=== PATIENT | female | born 1995 | race Caucasian/White ===

== ENCOUNTER → 2018-12-25 08:52 | Outpatient (POV) | payer BC, SELFPAY | PROVIDERS: Visit Provider Dermatology | DX: Z00.00 Encounter for general adult medical examination without abnormal findings (principal) ==

== ENCOUNTER 2020-06-08 11:23 | Emergency (ER) | payer BC, SELFPAY ==
[2020-06-08] VITALS (7 sets, daily range): BP systolic 105–145; BP diastolic 65–86; PULSE 69–130; RESP 17–20; TEMP 36.7–36.8; O2SAT 95–100; BMI 19.2
--- NOTE | 2020-06-08 11:35 | US_ITS ---
PROCEDURE: US OB TRANSVAGINAL CLINICAL INDICATION: bleeding COMPARISON: No exams were available for comparison FINDINGS: There is a small cystic area in the lower aspect of the endometrium near the cervix which measures 5 x 3 mm. The endometrium measures 7 mm in thickness. The uterus has an otherwise unremarkable appearance. There is a small left ovarian cyst at 13 mm. There is bilateral ovarian blood flow. No cul-de-sac fluid. IMPRESSION: Cannot confirm a viable intrauterine at this time. There is a small cystic area in the lower uterine segment/cervical region nonspecific. Estimated due date by Ultrasound is Dictated by: Sam Galicia MD 06/08/2020 13:21 Sam Galicia MD in [place] 06/08/2020 13:21
[2020-06-08 11:57] LABS: Microscopic, Urine URINE MICROSCOPIC (MICROSCOPIC)
[2020-06-08 12:00] LABS: Appearance,Urine CLEAR (Clear); Bilirubin,Urine Negative (Negative); Blood, Urine 3+ (Negative); Color,Urine YELLOW (Yellow); Glucose,Urine (UA) Negative (Negative); Ketones,Urine Negative (Negative); Leukocyte Esterase,Urine Negative (Negative); Nitrate,Urine Negative (Negative); Protein,Urine Negative (Negative); Specific Gravity, Urine <= 1.005 (1.005-1.030); Urobilinogen,Urine 0.2 EU/dl (0.2)
[2020-06-08 12:03] LABS: Basophils # 0.1 K/mm3 (0-0.2); Basophils % 0.9 % (0.1-2.0); Eosinophils # 0.1 K/mm3 (0.0-0.4); Eosinophils % 0.9 % (0.1-12.0); Hematocrit 45.3 % (37.0-47.0); Hemoglobin 15.3 g/dL (12.2-16.2); Lymphocytes # 2.6 K/mm3 (0.7-4.5); Lymphocytes % 25.1 % (10-50); Mean Corpuscular HGB Conc 33.9 g/dL (31.8-35.4); Mean Corpuscular Hemoglobin 30.7 pg (27.0-31.2); Mean Corpuscular Volume 90.8 fl (81-99); Mean Platelet Volume 7.2 fl (7.4-10.4); Monocytes # 0.5 K/mm3 (0.1-1.0); Monocytes % 4.6 % (1.7-9.3); Neutrophils # 7.1 K/mm3 (1.8-7.8); Neutrophils % 68.5 % (37.0-80.0); Platelet Count 251 K/mm3 (142-424); Red Blood Count 4.99 M/mm3 (4.20-5.40); Red Cell Distribution Width 12.2 % (11.5-17.5); White Blood Count 10.3 K/mm3 (4.8-10.8)
[2020-06-08 12:04] LABS: Chloride 104 mmol/L (98-107); Potassium 3.7 mmoL/L (3.5-5.1); Sodium 139 mmol/L (136-145); Urine Pregnancy, HCG Qual. Negative (Negative)
[2020-06-08 12:06] LABS: Alanine Aminotransferase 24 U/L (12-78); Alkaline Phosphatase 55 U/L (38-126); Aspartate Amino Transferase 29 U/L (14-36); Bilirubin,Total 0.9 mg/dl (0.2-1.3); Blood Urea Nitrogen 8 mg/dl (7-17); Creatinine Clearance Estimated 100 mL/min (50-200); Estimated Glomerular Filt Rate 87 ml/min (>60); GFR (African American) 106 ML/MIN (>60)
[2020-06-08 12:07] LABS: Albumin Level 4.5 g/dl (3.5-5.0); Albumin/Globulin Ratio 1.4 (1.1-1.8); Anion Gap 12.7 mEq/L (5-15); Calcium 9.6 mg/dl (8.4-10.2); Carbon Dioxide 26 mmol/L (22.0-30.0); Globulin 3.2 g/dL (1.3-3.2); Glucose 111 mg/dl (74-100); Total Protein,Serum 7.7 g/dl (6.3-8.2)
--- NOTE | 2020-06-08 12:22 | PC.NURSE ---
vital signs delayed due to pt at ultra sound
[2020-06-08 12:24] LABS: HCG,Quantitative 10 mIU/ml (0-5.42)
[2020-06-08 12:29] LABS: Bacteria,Urine Trace /lpf
--- NOTE | 2020-06-08 12:58 | HMH.EDUROGF ---
ED Disposition Clinical Impression: Complete Disposition: Home, Self-Care Condition on Discharge: Good Instructions: DI for Miscarriage Referrals: Juan Pablo Barrios MD [Primary Care Provider] - Gal Martino MD [Staff Physician] - - Critical Care Critical Care Time: No Attestation: On 06/08/20, the high probability of a clinically significant, sudden or life threatening deterioration of the following system(s) required my full and direct attention, intervention and personal management. The time I documented below is in addition to time spent performing reported procedures but includes the following listed in this critical care notation. Medical Decision Making - Medical Records Medical records reviewed: Yes: I reviewed the patient's medical records. - Garry Inquiry Pt receiving controlled substance: No Vital Signs: 06/08/20 11:24 Temperature 98.1 F Temperature Source Oral Pulse Rate [Left Radial] 113 H Respiratory Rate 17 Blood Pressure [Right Arm] 141/83 H Blood Pressure Mean [Right Arm] 102 Blood Pressure Source [Right Arm] Automatic Cuff Blood Pressure Position [Right Arm] Sitting 02 Sat by Pulse Oximetry 100 Oxygen Delivery Method Room Air - Lab Data Lab Results 06/08/20 11:35: Urine Color Yellow, Urine Appearance Clear, Urine pH 7.0, Ur Specific [place] <= 1.005, Urine Protein Negative, Urine Glucose (UA) Negative, Urine Ketones Negative, Urine Blood 3+, Urine Nitrate Negative, Urine Bilirubin Negative, Urine Urobilinogen 0.2, Ur Leukocyte Esterase Negative, Urine RBC 10-20, Urine WBC 5-10, Ur Squamous Epith Cells 3-5, Urine Bacteria Trace 06/08/20 11:35: WBC 10.3, RBC 4.99, Hgb 15.3, Hct 45.3, MCV 90.8, MCH 30.7, MCHC 33.9, RDW 12.2, Plt Count 251, MPV 7.2 L, Neut % (Auto) 68.5, Lymph % (Auto) 25.1, [place] % (Auto) 4.6, Eos % (Auto) 0.9, Baso % (Auto) 0.9, Neut # (Auto) 7.1, Lymph # (Auto) 2.6, [place] # (Auto) 0.5, Eos # (Auto) 0.1, Baso # (Auto) 0.1 06/08/20 11:35: Urine HCG, Qual Negative 06/08/20 11:35: Sodium 139, Potassium 3.7, Chloride 104, Carbon Dioxide 26, Anion Gap 12.7, BUN 8, Creatinine 0.80, Estimated Creat Clear 100, Estimated GFR 87, Est GFR ( Amer) 106, Glucose 111 H, Calcium 9.6, Total Bilirubin 0.9, AST 29, ALT 24, Alkaline Phosphatase 55, Total Protein 7.7, Albumin 4.5, Globulin 3.2, Albumin/Globulin Ratio 1.4 06/08/20 11:35: HCG, Quant 10 H 06/08/20 12:05: Blood Type A Positive, Antibody Screen Negative Result diagrams: 06/08/20 11:35 06/08/20 11:35 - Radiology Data #1 Image(s): Other (TVUS) IMPRESSION: Cannot confirm a viable intrauterine at this time. There is a small cystic area in the lower uterine segment/cervical region nonspecific. Estimated due date by Ultrasound is - Reevaluation(s) Time: 13:52 Reevaluation #1: On reevaluation, patient is feeling fine. She is not having any worsening bleeding or abdominal discomfort. Patient's serum hCG is extremely low. Ultrasound is an equivocal for any intrauterine . She does have some small cysts in the lower cervix, however in correlation with her hCG level, I do believe miscarriage is most likely. I did instruct the patient that she needs to be reevaluated in 48 hours by her C[employer] REPAIRER for repeat blood draw and possible ultrasound. There is always concern for ectopic , however the patient is pain-free and has a normal abdominal exam at this time. Patient was also given strict return precautions. Verbalized understanding. Medical Decision Narrative: This is a 24-year-old female presenting to the emergency department with vaginal bleeding. Patient is currently 7 weeks . Painless bleeding. Work-up will be initiated. Female Urogenital HPI - General Chief complaint: Vaginal Bleeding Stated complaint: vag bleeding Time Seen by Provider: 06/08/20 11:30 Mode of Arrival: Ambulatory Limitations: No Limitations Description of Symptoms (Recalled from ER Triage
== END 2020-06-08 14:05 | disposition home or self-care (01) ==
PROVIDERS: Emergency Provider Emergency Medicine; PCP Family Medicine
DX: O03.9 Complete or unspecified spontaneous abortion without complication (principal)
CPT/HCPCS: 36415; 76817; 80053; 81001; 81025; 84702; 85025; 86850; 99284

== ENCOUNTER → 2020-06-12 07:23 | Outpatient (CLI) | payer BC, SELFPAY ==
[2020-06-12 10:32] LABS: HCG,Quantitative < 2 mIU/ml (0-5.42)
== END ==
PROVIDERS: Visit Provider Nurse Practitioner Obstetrics & Gynecology
DX: O20.0 Threatened abortion (principal)
CPT/HCPCS: 36415; 84702

== ENCOUNTER → 2020-08-10 07:13 | Outpatient (CLI) | payer BC, SELFPAY ==
[2020-08-10 20:52] LABS: HCG,Quantitative 236 mIU/ml (0-5.42)
== END ==
PROVIDERS: Visit Provider Nurse Practitioner Obstetrics & Gynecology
DX: Z32.00 Encounter for pregnancy test, result unknown (principal)
CPT/HCPCS: 36415; 84702

== ENCOUNTER → 2020-08-18 10:26 | Outpatient (CLI) | payer BC, SELFPAY ==
[2020-08-18 11:17] LABS: Basophils % 0.6 % (0.1-2.0); Eosinophils % 0.4 % (0.1-12.0); Hematocrit 41.9 % (37.0-47.0); Hemoglobin 13.8 g/dL (12.2-16.2); Lymphocytes # 1.6 K/mm3 (0.7-4.5); Lymphocytes % 26.7 % (10-50); Mean Corpuscular Volume 90.8 fl (81-99); Monocytes # 0.3 K/mm3 (0.1-1.0); Monocytes % 5.5 % (1.7-9.3); Neutrophils # 4.1 K/mm3 (1.8-7.8); Neutrophils % 66.9 % (37.0-80.0); Platelet Count 182 K/mm3 (142-424); Red Blood Count 4.61 M/mm3 (4.20-5.40); Red Cell Distribution Width 12.1 % (11.5-17.5); White Blood Count 6.1 K/mm3 (4.8-10.8)
[2020-08-19 09:47] LABS: HIV Screen 4th Generation wRfx Non Reactive (Non Reactive)
[2020-08-19 10:51] LABS: Rapid Plasma Reagin Ab Titer Non Reactive (NonRea<1:1); Rubella Antibodies, IgG 1.46 index (Immune >0.99)
[2020-08-19 13:59] LABS: Hepatitis B Surface Antigen Negative (Negative); Hepatitis C Antibody <0.1 s/co ratio (0.0-0.9)
== END ==
PROVIDERS: Visit Provider Nurse Practitioner Obstetrics & Gynecology
DX: Z34.90 Encounter for supervision of normal pregnancy, unspecified, unspecified trimester (principal)
CPT/HCPCS: 36415; 85025; 86592; 86703; 86762; 86850; 87340; 87380; G0432

== ENCOUNTER → 2020-08-28 15:02 | Outpatient (CLI) | payer BC, SELFPAY ==
--- NOTE | 2020-08-28 15:03 | US_ITS ---
PROCEDURE: US OB <= 14 WEEKS FETUS CLINICAL INDICATION: for dates Early Ob ultrasound for dates COMPARISON: US US OB TRANSVAGINAL from 06/08/2020 FINDINGS: An intrauterine gestational sac is present with a pole with a crown-rump length of 0.36 cm correlating to gestational age of 6 weeks 1 day. heart tones are present with an FHR of 112 BPM. Yolk sac is noted. IMPRESSION: Live IUP at 6 weeks 1 day. Estimated due date by Ultrasound is 04/22/2021 Dictated by: Sam Galicia MD 08/28/2020 15:51 Sam Galicia MD in [place] 08/28/2020 15:51
== END ==
PROVIDERS: PCP Family Medicine; Visit Provider Nurse Practitioner Obstetrics & Gynecology
DX: Z34.90 Encounter for supervision of normal pregnancy, unspecified, unspecified trimester (principal)
CPT/HCPCS: 76801

== ENCOUNTER 2020-09-07 10:45 | Emergency (ER) | payer BC, SELFPAY ==
[2020-09-07 12:10] VITALS: BP 120/80; PULSE 91; RESP 18; TEMP 36.9; O2SAT 98; BMI 18.8
[2020-09-07 12:14] VITALS: BP 120/80; PULSE 91; RESP 18; TEMP 36.9; O2SAT 98
--- NOTE | 2020-09-07 12:14 | HMH.EDUTC ---
[facility] [place] Disposition Clinical Impression: Encounter for laboratory testing for COVID-19 virus Disposition: Home, Self-Care Condition on Discharge: Good Instructions: Preventing the Spread of Coronavirus Discharge Instructions, Sore Throat Additional Instructions: *Monitor Temp, Over the counter Motrin or Tylenol as directed/as needed Tylenol every 4 hours and Motrin every 6 hours (as long as your family doctor has told you that you can take it) for fever or pain. and straight to ER if unable to lower temp less than 101.0 after medication given *Warm salt water gargles may help to soothe the throat *Throat Lozenges *Warm fluids like tea with honey may help to soothe the throat *Sleep elevated *Humidifier/Vaporizer *Flonase 2 sprays in each nostril daily but be aware that it may take 2-3 days before you notice improvement Follow up IMMEDIATELY for new or worsening symptoms or no Noticeable improvement over the next 48-72 hours. 911 for difficulty breathing or swallowing You were tested for today for COVID19 your test result should be back in the next 24-48 hours, you may call to the [facility] to see if your test results are back in the next 48 hours [phone] [facility] hours are 9am-9pm You was given a handout with instructions for Self Quarantine and Self isolation for while you wait on test results and what to do if they are positive If you are positive the Health Dept will be contacting you also Referrals: Juan Pablo Barrios MD [Primary Care Provider] - As needed Forms: Work/School Release Time of Disposition: 12:17 Medical Decision Making - Garry Inquiry Pt receiving controlled substance: No Garry was queried for this patient: No Vital Signs: 09/07/20 12:10 Temperature 98.4 F Temperature Source Oral Pulse Rate [Left] 91 H Respiratory Rate 18 Blood Pressure [Right Arm] 120/80 Blood Pressure Mean [Right Arm] 93 Blood Pressure Source [Right Arm] Automatic Cuff Blood Pressure Position [Right Arm] Sitting 02 Sat by Pulse Oximetry 98 Oxygen Delivery Method Room Air Orders (Tests/Meds): ORDERS Category Date Time Status Covid-19 Nasal PCR Sendout [facility] 09/07/20 11:45 Ordered [facility] [place] HPI - General Stated complaint: sore throat,cough,headache,covid test Time Seen by Provider: 09/07/20 12:14 Mode of Arrival: Ambulatory Source of Information: Patient Limitations: No Limitations Description of Symptoms (Recalled from Triage Doc. by RN): Covid testing symptomatic-cough, body aches, diarrhea x 3days HEENT Symptoms (Recalled from RN notes): Yes Resp Symptoms (Recalled from RN notes): Yes Skin Symptoms (Recalled from RN notes): No MS Symptoms (Recalled from RN notes): No Functional Status (Recalled from RN notes): wnl - History of Present Illness Provider Complaint: Patient state that she is 7wks OB States that she started on the weekend having scratchy throat and body aches State that today she got up and had diarrhea and muscle aches all over State that she was worried and wanted to get tested for COVID - Related Data Home Medications Medication Instructions Recorded Confirmed prenat.vits,tati,[id number] 1 tab PO DAILY 06/15/20 08/18/20 folic acid 800 mcg tablet 0.8 mg PO DAILY 08/18/20 08/18/20 Allergies Allergy/AdvReac Type Severity Reaction Status Date / Time No Known Allergies Allergy Verified 08/18/20 08:56 - Worker's Comp Is this a Worker's Comp case?: No Is this an [facility] Worker's Comp?: No Is this a [facility] Worker's Comp?: No H History - Hepatitis A Screen Drug use history?: No High risk sexual behaviors?: No History of sexually transmitted infection?: No Currently employed?: No Childcare worker?: No Do you have indoor plumbing?: Yes Do you have electricity?: Yes Attestation statement:: This patient has been screened for Hepatitis A risk factors. I have reviewed the patient's past medical history: Yes Other Surgeries: Yes: Appendectomy - Social History Smoking
[2020-09-07 19:26] LABS: UTC Strep Screen (Rapid) Negative (Negative)
[2020-09-08 12:41] LABS: Covid-19 Nasal PCR Sendout Lex Positive
--- NOTE | 2020-09-08 12:53 | PC.NURSE ---
Patient notified of positive COVID results. Educated on quarantine.
== END 2020-09-07 12:26 | disposition home or self-care (01) ==
PROVIDERS: Emergency Provider Nurse Practitioner; PCP Family Medicine
DX: U07.1 COVID-19 (principal); Z34.90 Encounter for supervision of normal pregnancy, unspecified, unspecified trimester
CPT/HCPCS: 87880; 99201; U0004

== ENCOUNTER → 2020-12-10 13:18 | Outpatient (CLI) | payer BC, SELFPAY ==
--- NOTE | 2020-12-10 13:18 | US_ITS ---
PROCEDURE: US OB /MATERNAL DETAIL CLINICAL INDICATION: 20 weeks gestation Anatomy exam COMPARISON: US US OB <= 14 WEEKS FETUS from 08/28/2020 FINDINGS: There is a single live fetus which is in breech presentation. The cervix is closed and measures 4 cm. heart and body motion is noted. The placenta is posterior and grade 1. Complete survey performed and was unremarkable on the submitted images as in PACS. No discrete anomalies identified on survey imaging by technologist. Active fetus. Three-vessel cord with satisfactory umbilical cord insertion. 4- chamber heart noted. Survey of brain & ventricles Unremarkable. Face and neck survey unremarkable. Diaphragm and chest views unremarkable. Abdomen: Both kidneys noted and unremarkable. Stomach noted and satisfactory. Spine: Survey of the spine satisfactory with no anomalies identified nor imaged. Both arms and legs noted. Amniotic Fluid: Adequate. Maternal adnexa: No significant findings. Measurements: Average ultrasound age 20weeks 6days. Gestational Age 20weeks 6days Estimated due date by ultrasound age 0704/23/2021. Estimated weight 379g BPD = 20weeks 6days OFD = 20weeks 5days HC = 20weeks 1day AC = 21weeks 1day FL = 20weeks 6days Growth Percentile= 32Percent% Heart Rate = 128bpm Cerebellum = 20weeks 5days Humerus = 22weeks HC/AC is 1.1 CI is 0.79 FL/BPD is 0.7 FL/AC is 0.21 IMPRESSION: Live IUP in breech presentation with an average ultrasound age of 20 weeks 6 days. No obvious anomalies. Please see above for detail Dictated by: Sam Galicia MD 01/23/2021 18:52 Sam Galicia MD in [place] 01/23/2021 18:52
== END ==
PROVIDERS: PCP Family Medicine; Visit Provider Nurse Practitioner Obstetrics & Gynecology
DX: Z34.90 Encounter for supervision of normal pregnancy, unspecified, unspecified trimester (principal); Z3A.20 20 weeks gestation of pregnancy
CPT/HCPCS: 76811

== ENCOUNTER → 2021-01-19 07:56 | Outpatient (CLI) | payer BC, SELFPAY ==
[2021-01-19 08:34] LABS: Glucose,Fasting 90 mg/dl (74-100)
[2021-01-19 09:59] LABS: Glucose 1 Hour 71 mg/dL (74-100)
== END ==
PROVIDERS: Visit Provider Nurse Practitioner Obstetrics & Gynecology
DX: Z34.90 Encounter for supervision of normal pregnancy, unspecified, unspecified trimester (principal)
CPT/HCPCS: 36415; 82951

== ENCOUNTER → 2021-02-22 13:23 | Outpatient (CLI) | payer BC, SELFPAY ==
--- NOTE | 2021-02-22 13:23 | US_ITS ---
PROCEDURE: US OB BIOPHYSICAL PROFILE CLINICAL INDICATION: sga Small for gestational age TECHNIQUE: FINDINGS: The following parameters are obtained: Average ultrasound age is Average 30weeks 6days Estimated due date by ultrasound is 04/27/2021. Estimated weight is 1,643g. This is 17th percentile. BPD: 30weeks 3days, 7.6cm OFD: 31weeks 2days, 10.1cm HC: 28cm AC: 26.6cm FL: 6cm heart rate: 128bpm bpm. HC/AC: 1.05 Cephalic index: 0.75 FL/BPD: 0.79 FL/AC: 0.23 Amniotic fluid index: 10.49cm Qualitative AFV: 2 breathing movements: 2 Gross body movements: 2 Tone: 2 Biophysical profile score: 8 The cervix is closed measuring 3.5 cm. Fetus is in cephalic presentation. The placenta is posterior and grade 1. No previa or abruption IMPRESSION: Live IUP at 30 weeks 6 days in cephalic presentation. Estimated weight is 1643 g which is 17th percentile. PANCHO normal at 10 cm. Biophysical profile 8 of 8 Dictated by: Sam Galicia MD 02/23/2021 08:07 Sam Galicia MD in [place] 02/23/2021 08:07
== END ==
PROVIDERS: PCP Family Medicine; Visit Provider Nurse Practitioner Obstetrics & Gynecology
DX: O36.5990 Maternal care for other known or suspected poor fetal growth, unspecified trimester, not applicable or unspecified (principal)
CPT/HCPCS: 76816; 76819

== ENCOUNTER → 2021-03-18 11:48 | Outpatient (CLI) | payer BC, SELFPAY | PROVIDERS: Visit Provider Nurse Practitioner Obstetrics & Gynecology | DX: Z34.90 Encounter for supervision of normal pregnancy, unspecified, unspecified trimester (principal) | CPT/HCPCS: 86403 ==

== ENCOUNTER → 2021-03-24 14:48 | Outpatient (CLI) | payer BC, SELFPAY ==
--- NOTE | 2021-03-24 14:48 | US_ITS ---
PROCEDURE: US OB BIOPHYSICAL PROFILE CLINICAL INDICATION: sga Small for gestational age TECHNIQUE: FINDINGS: The following parameters are obtained: Average ultrasound age is Average 34weeks 3days Estimated due date by ultrasound is 05/02/2021. Estimated weight is 2,314g. This is 9th percentile indicating intrauterine growth restriction. BPD: 35weeks 2days; 8.7cm OFD: 35weeks; 10.9cm HC: 34 weeks 5 days; 31cm AC: 34 weeks 1 day; 30.1cm FL: 33 weeks 1 day; 6.4cm heart rate: 125bpm bpm. HC/AC: 1.03 Cephalic index: 0.8 FL/BPD: 0.73 FL/AC: 0.21 Amniotic fluid index: 11.34cm Qualitative AFV: 2 breathing movements: 2 Gross body movements: 2 Tone: 2 Biophysical profile score: 8 The placenta is fundal and grade 3. Limited images of the fetus were obtained. The fetus urinary bladder did appears somewhat prominent but could be transient and could be confirmed with follow-up if clinically warranted. IMPRESSION: Live IUP with an average ultrasound age 34 weeks 3 days which is in cephalic presentation. Estimated weight is 2314 g which is 9th percentile indicating intrauterine growth restriction. Fundal grade 3 placenta PANCHO 11 cm BPD 8 of 8 Dictated by: Sam Galicia MD 03/26/2021 05:11 Sam Galicia MD in [place] 03/26/2021 05:11
== END ==
PROVIDERS: PCP Family Medicine; Visit Provider Nurse Practitioner Obstetrics & Gynecology
DX: O36.5990 Maternal care for other known or suspected poor fetal growth, unspecified trimester, not applicable or unspecified (principal)
CPT/HCPCS: 76816; 76819

== ENCOUNTER 2021-04-10 17:50 | Inpatient (IN) | payer BC, SELFPAY ==
[2021-04-10 16:43] VITALS: BP 135/87; PULSE 96; RESP 18; TEMP 37; O2SAT 99; BMI 21.3
[2021-04-10 17:33] LABS: Microscopic, Urine URINE MICROSCOPIC (MICROSCOPIC)
[2021-04-10 17:34] LABS: Appearance,Urine CLEAR (Clear); Bilirubin,Urine Negative (Negative); Blood, Urine TRACE-I (Negative); Color,Urine YELLOW (Yellow); Glucose,Urine (UA) Negative (Negative); Ketones,Urine Negative (Negative); Leukocyte Esterase,Urine Negative (Negative); Nitrate,Urine Negative (Negative); Protein,Urine Negative (Negative)
[2021-04-10 17:35] LABS: Fetal Membrane Rupture (Rapid) Positive (Negative)
[2021-04-10 17:38] LABS: RBC,Urine Occasional #/hpf (0-3); Squamous Epithelial Cell,Urine Occasional #/hpf (0-5)
[2021-04-10 17:46] LABS: Benzodiazepines Screen,Urine Negative ng/ml (<200)
[2021-04-10 17:47] LABS: Amphetamine/Metha Screen,Urine Negative ng/ml (<1000)
[2021-04-10 17:48] LABS: Barbiturates Screen,Urine Negative ng/ml (<200); Cannabinoid Screen,Urine Negative ng/ml (<50)
[2021-04-10 17:49] LABS: Cocaine Screen,Urine Negative ng/ml (<300)
[2021-04-10 17:50] LABS: Methadone Screen,Urine Negative ng/ml (<300); Opiate Screen,Urine Negative ng/ml (<300)
[2021-04-10 17:51] LABS: Phencyclidine Screen,Urine Negative ng/ml (<25)
[2021-04-10 18:13] LABS: Coronavirus 19, PCR Not Detected (NotDetected); Influenza A, PCR Not Detected (NotDetected); Influenza B, PCR Not Detected (NotDetected)
[2021-04-10 18:15] LABS: Basophils # 0.1 K/mm3 (0-0.2); Basophils % 0.5 % (0.1-2.0); Eosinophils % 0.4 % (0.1-12.0); Hematocrit 40.5 % (37.0-47.0); Hemoglobin 13.9 g/dL (12.2-16.2); Lymphocytes # 1.9 K/mm3 (0.7-4.5); Mean Corpuscular HGB Conc 34.2 g/dL (31.8-35.4); Mean Corpuscular Hemoglobin 30.6 pg (27.0-31.2); Mean Corpuscular Volume 89.3 fl (81-99); Mean Platelet Volume 8.8 fl (7.4-10.4); Monocytes # 0.5 K/mm3 (0.1-1.0); Monocytes % 5.1 % (1.7-9.3); Neutrophils # 7.5 K/mm3 (1.8-7.8); Platelet Count 223 K/mm3 (142-424); Red Blood Count 4.53 M/mm3 (4.20-5.40); Red Cell Distribution Width 13.5 % (11.5-17.5)
--- NOTE | 2021-04-10 20:38 | HMH.ANESCL ---
[facility] Anesthesia Checklist - Patient Identification Patient Identification: Arm Band - Structural Data Admitted From: Inpatient Planned Operative Procedure/s: Epidural Consent for Planned Operative Procedure(s) Verified: Yes - NPO Status Verified Time NPO: 13:00 - Airway Assessment C-Spine Mobility Assessed: Yes TMJ Mobility Assessed: Yes Dentition: Good Dentition - Neurological Assessment Level of Consciousness: Awake Hx Seizures: No Numbness or tingling in extremities: No - Anesthesia Plan Anesthesia Risk discussed: Yes Anesthesia Plan: Verified ASA Class: II Anesthesia Type: Epidural [facility] History I have reviewed the patient's past medical history: Yes *Have you ever received a pneumonia vaccine?: No *Have you received a flu vaccine this season?: No Anesthesia experience/problems:: None Other Surgeries: Yes: Appendectomy. 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
--- NOTE | 2021-04-10 21:28 | HMH.HP ---
*Admission Date: 04/10/21 *Chief complaint: Continuous rupture of membranes and contractions *History of present illness: This 25-year-old 2, para 0, AB 1 white female has had regular care and no problems during this . Actually 1600 hrs. today she felt spontaneous rupture of membranes at home and came to the labor room, where that was confirmed. At the time she was 4 cm dilated and having regular contractions. In the interim she is progressed to 7 cm and now has an epidural in situ. [facility] History Medical History: Denies:: Seizures *Have you ever received a pneumonia vaccine?: No *Have you received a flu vaccine this season?: No Anesthesia experience/problems:: None Other Surgeries: Yes: Appendectomy. 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 Para: 0 LMP comments: (38 4/7 weeks) Review of Systems - Review of Systems Review of systems:: pertinent systems reviewed and negative unless documented below (all WNL) Meds Home Medications Medication Instructions Recorded Confirmed Type prenat.vits,tati,[id number] 1 tab PO DAILY 06/15/20 04/08/21 History Allergies Allergy/AdvReac Type Severity Reaction Status Date / Time No Known Allergies Allergy Verified 04/08/21 08:19 Exam Vital signs and Labs for Last 24 Hours: Temp Pulse Resp BP Pulse Ox 98.6 F 96 H 18 135/87 99 04/10/21 16:43 04/10/21 16:43 04/10/21 16:43 04/10/21 16:43 04/10/21 16:43 Laboratory Results - last 24 hr 04/10/21 16:45: Urine Color Yellow, Urine Appearance Clear, Urine pH 8.0, Ur Specific [place] 1.010, Urine Protein Negative, Urine Glucose (UA) Negative, Urine Ketones Negative, Urine Blood Trace-i, Urine Nitrate Negative, Urine Bilirubin Negative, Urine Urobilinogen 1.0, Ur Leukocyte Esterase Negative, Urine RBC Occasional, Urine WBC None, Ur Squamous Epith Cells Occasional, Urine Bacteria None 04/10/21 16:45: Urine Opiates Screen Negative, Urine Methadone Screen Negative, Ur Barbituates Screen Negative, Ur Phencyclidine Scrn Negative, Ur Amphetamines Screen Negative, U Benzodiazepines Scrn Negative, Urine Cocaine Screen Negative, U Marijuana (THC) Screen Negative 04/10/21 17:00: Membrane Rupture Positive A 04/10/21 18:02: WBC 10.0, RBC 4.53, Hgb 13.9, Hct 40.5, MCV 89.3, MCH 30.6, MCHC 34.2, RDW 13.5, Plt Count 223, MPV 8.8, Neut % (Auto) 75.0, Lymph % (Auto) 19.0, [place] % (Auto) 5.1, Eos % (Auto) 0.4, Baso % (Auto) 0.5, Neut # (Auto) 7.5, Lymph # (Auto) 1.9, [place] # (Auto) 0.5, Eos # (Auto) 0.0, Baso # (Auto) 0.1 04/10/21 18:02: SARS-CoV-2 (PCR) Not detected, Influenza A Untype (PCR) Not detected, Influenza Type B (PCR) Not detected 04/10/21 18:02: Blood Type A Positive, Antibody Screen Negative I & O for Last 24 hours: Intake & Output 04/08/21 04/09/21 04/10/21 04/11/21 11:59 11:59 11:59 11:59 Weight 144 lb 6 oz - *Routine HEENT Exam Head: Present: normocephalic (normal) Eye: Present: EOMI (NL) ENT: Present: mucous membranes moist (NL) - *Routine Respiratory Exam Present: accessory muscle use (NL) - *Routine Cardiovascular Exam Present: RRR (NL) - *Routine Abdominal Exam Present: soft (NL) - *Routine Rectal Exam Rectal:: deferred (NL) - *Routine Genitalia Exam Genitalia:: normal female (Cervix completely effaced, 7 cm, with the presenting vertex at 0 station.), deferred Comment:: Cervix 7 cm, 100% effaced, presenting vertex at 0 station. Internal electrode applied. Assessment and Plan (1) Start date: 04/10/21 Start time: 16:00 Status: Acute Qualifiers: Weeks of gestation: 38 weeks Qualified Code(s): Z3A.38 - 38 weeks gestation of
--- NOTE | 2021-04-10 21:43 | P.PN_ITS ---
Internal Medicine - PN: Subj *Date: 04/10/21 *Time: 21:43 ( 7 cm dilated, 100% effaced, with the presenting vertex at 0 st ation. Internal electrode in situ. Epidural in situ and working well) Exam Vital signs and Labs for Last 24 Hours: Temp Pulse Resp BP Pulse Ox 98.6 F 96 H 18 135/87 99 04/10/21 16:43 04/10/21 16:43 04/10/21 16:43 04/10/21 16:43 04/10/21 16:43 Laboratory Results - last 24 hr 04/10/21 16:45: Urine Color Yellow, Urine Appearance Clear, Urine pH 8.0, Ur Specific [place] 1.010, Urine Protein Negative, Urine Glucose (UA) Negative, Urine Ketones Negative, Urine Blood Trace-i, Urine Nitrate Negative, Urine Bilirubin Negative, Urine Urobilinogen 1.0, Ur Leukocyte Esterase Negative, Urine RBC Occasional, Urine WBC None, Ur Squamous Epith Cells Occasional, Urine Bacteria None 04/10/21 16:45: Urine Opiates Screen Negative, Urine Methadone Screen Negative, Ur Barbituates Screen Negative, Ur Phencyclidine Scrn Negative, Ur Amphetamines Screen Negative, U Benzodiazepines Scrn Negative, Urine Cocaine Screen Negative, U Marijuana (THC) Screen Negative 04/10/21 17:00: Membrane Rupture Positive A 04/10/21 18:02: WBC 10.0, RBC 4.53, Hgb 13.9, Hct 40.5, MCV 89.3, MCH 30.6, MCHC 34.2, RDW 13.5, Plt Count 223, MPV 8.8, Neut % (Auto) 75.0, Lymph % (Auto) 19.0, [place] % (Auto) 5.1, Eos % (Auto) 0.4, Baso % (Auto) 0.5, Neut # (Auto) 7.5, Lymph # (Auto) 1.9, [place] # (Auto) 0.5, Eos # (Auto) 0.0, Baso # (Auto) 0.1 04/10/21 18:02: SARS-CoV-2 (PCR) Not detected, Influenza A Untype (PCR) Not detected, Influenza Type B (PCR) Not detected 04/10/21 18:02: Blood Type A Positive, Antibody Screen Negative I & O for Last 24 hours: Intake & Output 04/08/21 04/09/21 04/10/21 04/11/21 11:59 11:59 11:59 11:59 Weight 144 lb 6 oz Assessment and Plan (1) Start date: 04/10/21 Start time: 16:00 Status: Acute Qualifiers: Weeks of gestation: 38 weeks Qualified Code(s): Z3A.38 - 38 weeks gestation of Category: Medical Code(s): Z34.90 - Encounter for supervision of normal , unspecified, unspecified trimester
[2021-04-11 00:07] LABS: Cord Blood PH 7.32 (7.35-7.45)
--- NOTE | 2021-04-11 00:13 | HMH.DN ---
- Delivery Note Delivery Date:: 04/10/21 Delivery Time:: 23:55 Was labor medically induced?: No Induction method: none Gestational age (weeks): 38 Infant delivered prior to 39 weeks?: Yes Justification for early elective delivery:: Active Labor, Premature ROM Infant Gender: Female at 1 minute: 9 at 5 minutes: 9 AF:: clear LAC or MLE?: MLE (occiput posterior) Delivery Procedure:: This 25-year-old 2, now para 1, Ab1 white female was admitted at 38-4/7 weeks with spontaneous rupture of membranes at home (at 1600 h0ous) and regular contractions. She was 4 cm dilated upon admission. She progressed slowly to 7 cm, at which time she received a labor epidural, which worked well. At 8 cm her contractions waned, and she was augmented with intravenous Pitocin. She went steadily to completion, and pushed effectively; however, the presentation occiput posterior, and ultimately she was unable to negotiate the pubic bone. She was delivered by outlet forceps from direct OP, over a midline episiotomy. There was no nuchal cord, nor any meconium. The baby's nasal and oropharynx were bulb suctioned, and the baby cried spontaneously on the perineum, as was delivered. The cord was clamped and cut, 3 vessels were noted to be within the cord, and cord blood was obtained. The baby was handed into the arms of the attending RN, who assigned Apgars of 9 at 1 minute and 9 at 5 minutes to this 6 pound 13 ounce female , born at 2355. The placenta delivered spontaneously at 2358, making the total time in labor 7 hours 58 minutes. The uterus was inspected and was felt to be clean, and was involuting well, with IV Pitocin running. There were no ulcerations, nor extensions of the midline episiotomy, which was closed in the usual fashion, in layers, with 2-0 Vicryl. The rectovaginal septum was intact at the close of the procedure. The sponge and needle count was correct. The estimated blood loss was 350 cc. The patient tolerated the procedure well, and was recovered in excellent condition. Blood type is Rh+. Her rubella titer is immune. She plans to bottlefeed. Placental Delivery Description: Spontaneous (NL)
[2021-04-11 03:37] VITALS: BP 114/59; PULSE 72; RESP 18; TEMP 36.9; O2SAT 100
[2021-04-11 08:00] LABS: Hematocrit 36.7 % (37.0-47.0)
[2021-04-11 08:01] LABS: Hemoglobin 12.4 g/dL (12.2-16.2)
[2021-04-11 08:04] VITALS: BP 108/67; PULSE 83; RESP 16; TEMP 36.5; O2SAT 98
--- NOTE | 2021-04-11 10:59 | HMH.ACPN2 ---
Internal Medicine - PN: Subj *Date: 04/11/21 *Time: 10:59 (This is day #1. The patient is afebrile. Vital signs stable. Lochia normal. Uterine fundus involuting well. Episiotomy healing well. Hemoglobin 12.4 g. Bottlefeeding. Impression: Stable. Dr. Martino will assume care this evening.) Exam Vital signs and Labs for Last 24 Hours: Temp Pulse Resp BP Pulse Ox 97.7 F 83 16 108/67 L 98 04/11/21 08:04 04/11/21 08:04 04/11/21 08:04 04/11/21 08:04 04/11/21 08:04 Laboratory Results - last 24 hr 04/10/21 16:45: Urine Color Yellow, Urine Appearance Clear, Urine pH 8.0, Ur Specific [place] 1.010, Urine Protein Negative, Urine Glucose (UA) Negative, Urine Ketones Negative, Urine Blood Trace-i, Urine Nitrate Negative, Urine Bilirubin Negative, Urine Urobilinogen 1.0, Ur Leukocyte Esterase Negative, Urine RBC Occasional, Urine WBC None, Ur Squamous Epith Cells Occasional, Urine Bacteria None 04/10/21 16:45: Urine Opiates Screen Negative, Urine Methadone Screen Negative, Ur Barbituates Screen Negative, Ur Phencyclidine Scrn Negative, Ur Amphetamines Screen Negative, U Benzodiazepines Scrn Negative, Urine Cocaine Screen Negative, U Marijuana (THC) Screen Negative 04/10/21 17:00: Membrane Rupture Positive A 04/10/21 18:02: WBC 10.0, RBC 4.53, Hgb 13.9, Hct 40.5, MCV 89.3, MCH 30.6, MCHC 34.2, RDW 13.5, Plt Count 223, MPV 8.8, Neut % (Auto) 75.0, Lymph % (Auto) 19.0, [place] % (Auto) 5.1, Eos % (Auto) 0.4, Baso % (Auto) 0.5, Neut # (Auto) 7.5, Lymph # (Auto) 1.9, [place] # (Auto) 0.5, Eos # (Auto) 0.0, Baso # (Auto) 0.1 04/10/21 18:02: SARS-CoV-2 (PCR) Not detected, Influenza A Untype (PCR) Not detected, Influenza Type B (PCR) Not detected 04/10/21 18:02: Blood Type A Positive, Antibody Screen Negative 04/11/21 00:06: Cord ABG pH 7.32 L 04/11/21 07:36: Hgb 12.4 D, Hct 36.7 L I & O for Last 24 hours: Intake & Output 04/08/21 04/09/21 04/10/21 04/11/21 11:59 11:59 11:59 11:59 Output Total 600 / 600 Balance -600 / -600 Weight 144 lb 6 oz Assessment and Plan (1) Start date: 04/10/21 Start time: 16:00 Status: Acute Qualifiers: Weeks of gestation: 38 weeks Qualified Code(s): Z3A.38 - 38 weeks gestation of Category: Medical Code(s): Z34.90 - Encounter for supervision of normal , unspecified, unspecified trimester
[2021-04-11 12:25] VITALS: BP 117/67; PULSE 90; RESP 16; TEMP 36.6; O2SAT 100
[2021-04-11 16:01] VITALS: BP 117/60; PULSE 71; RESP 18; TEMP 36.8; O2SAT 100
[2021-04-11 20:04] VITALS: BP 120/69; PULSE 89; RESP 17; TEMP 36.9; O2SAT 99
[2021-04-12 04:00] VITALS: BP 105/57; PULSE 82; RESP 18; TEMP 36.6; O2SAT 100
--- NOTE | 2021-04-12 09:28 | P.DS_ITS ---
General - General Admission date:: 04/10/21 Discharge date: 04/12/21 HPI - History of Present Illness History of present illness: She is a 25-year-old 2 now para 1 aborta 1 who was 38+ weeks gestational age. She came in in active labor with ruptured membranes. Hospital Course Hospital Course: She progressed under labor epidural to full dilation and delivered with the assistance of outlet forceps in the direct OP position a liveborn female child at 11:55 PM in the evening of April 10, 2021. The baby was liveborn female child weighing 6 pounds 13 ounces and she was 19 inches long. She had Apgars of 9 at 1 minute and 9 at 5 minutes. She has done well and has remained afebrile with her hospitalization. She is eating and drinking and ambulating. She is bottlefeeding. Her lochia is normal. She has a positive blood, she is rubella immune and was group B streptococcus negative. 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 She will be discharged home today to follow-up with me in approximately 2 weeks time. She will continue with her vitamins and iron. She was given the usual instructions with respect to limiting her activity, driving and sexual activity. Her condition on discharge is stable and improved. Rhogam Administration: Not Indicated Objective Vital signs: Temp Pulse Resp BP Pulse Ox 97.9 F 82 18 105/57 L 100 04/12/21 04:00 04/12/21 04:00 04/12/21 04:00 04/12/21 04:00 04/12/21 04:00 no acute distress - *Routine HEENT Exam Head: Present: normocephalic Eye: Present: EOMI, PERRL ENT: Present: mucous membranes moist DS: Diagnosis - Discharge Diagnosis (1) Status: Acute (2) Forceps delivery Status: Acute Discharge Plan - Patient Discharge Instructions ACTIVITY: No heavy lifting DIET: continue same diet Additional Instructions: *Nothing in the Vagina for 6 weeks* *No heavy lifting* *No strenuous activity* Patient Instructions: Depression, Hemorrhage, DI for Labor and Delivery, Vaginal , DI for Pre-eclampsia, [facility] Post Discharge Instructions, Preventing the Spread of Coronavirus Discharge Instructions - Follow up Plan Follow up with: Gal Martino MD [Staff Physician] - Disposition: Home, Self-Care Condition at discharge:: Stable Home Medications: Home Medications Medication Instructions Recorded Confirmed Type prenat.vits,tati,ovk-yvmo-tvpfi 1 tab PO DAILY 06/15/20 04/10/21 History Prescriptions/Medication Reconciliation: Continued prenat.vits,tati,ctv-juzk-yzmht 1 tab PO DAILY - Problem Reconciliation Problems Reviewed?: Yes
== END 2021-04-12 14:20 | disposition home or self-care (01) | DRG 807 ==
LOC: OBOUT 17:50 → OB 17:50
PROVIDERS: Admitting Provider Obstetrics & Gynecology; PCP Family Medicine; Visit Provider Nurse Practitioner Obstetrics & Gynecology
DX: O32.8XX0 Maternal care for other malpresentation of fetus, not applicable or unspecified (principal); Z37.0 Single live birth; O42.92 Full-term premature rupture of membranes, unspecified as to length of time between rupture and onset of labor; Z3A.38 38 weeks gestation of pregnancy
CPT/HCPCS: 59409; 59025; 80305; 81001; 82800; 84112; 85014; 85018; 85025; 86850; 94761; G0283; J2405; U0003

== ENCOUNTER → 2022-02-11 07:45 | Outpatient (CLI) | payer BC, SELFPAY ==
[2022-02-11 08:53] LABS: HCG,Quantitative 300 mIU/ml (0-5.42)
== END ==
PROVIDERS: PCP Family Medicine; Visit Provider Nurse Practitioner Obstetrics & Gynecology
DX: N92.6 Irregular menstruation, unspecified (principal)
CPT/HCPCS: 36415; 84702

== ENCOUNTER → 2022-03-09 10:55 | Outpatient (CLI) | payer BC, SELFPAY ==
[2022-03-09 11:28] LABS: Basophils # 0.2 K/mm3 (0-0.2); Basophils % 2.7 % (0.1-2.0); Eosinophils % 0.5 % (0.1-12.0); Hematocrit 39.9 % (37.0-47.0); Hemoglobin 13.5 g/dL (12.2-16.2); Lymphocytes # 1.7 K/mm3 (0.7-4.5); Lymphocytes % 24.5 % (10-50); Mean Corpuscular HGB Conc 33.7 g/dL (31.8-35.4); Mean Corpuscular Hemoglobin 30.2 pg (27.0-31.2); Mean Corpuscular Volume 89.4 fl (81-99); Mean Platelet Volume 7.1 fl (7.4-10.4); Monocytes # 0.4 K/mm3 (0.1-1.0); Neutrophils # 4.6 K/mm3 (1.8-7.8); Neutrophils % 66.4 % (37.0-80.0); Platelet Count 226 K/mm3 (142-424); Red Blood Count 4.46 M/mm3 (4.20-5.40); Red Cell Distribution Width 12.8 % (11.5-17.5); White Blood Count 6.9 K/mm3 (4.8-10.8)
[2022-03-10 08:22] LABS: Hepatitis B Surface Antigen Negative (Negative); Hepatitis C Antibody 0.1 s/co ratio (0.0-0.9)
[2022-03-10 09:14] LABS: HIV Screen 4th Generation wRfx Non Reactive (Non Reactive)
[2022-03-10 13:12] LABS: Rapid Plasma Reagin Ab Titer Non Reactive (NonRea<1:1)
[2022-03-11 08:15] LABS: HSV 1 IgG, Type Spec 1.05 index (0.00-0.90); HSV 2 IgG, Type Spec <0.91 index (0.00-0.90)
== END ==
PROVIDERS: PCP Family Medicine; Visit Provider Nurse Practitioner Obstetrics & Gynecology
DX: Z34.90 Encounter for supervision of normal pregnancy, unspecified, unspecified trimester (principal)
CPT/HCPCS: 36415; 85025; 86592; 86695; 86703; 86762; 86790; 86850; 87340; 87380; G0432

== ENCOUNTER → 2022-03-10 07:24 | Outpatient (CLI) | payer BC, SELFPAY ==
--- NOTE | 2022-03-10 07:24 | US_ITS ---
FINAL REPORT CLINICAL HISTORY: for dates FINDINGS: Sonographic images of the pelvis were obtained. A single, living intrauterine is noted. A yolk sac is present and measures 0.44 cm. [place] to rump length measures 1.8 cm which corresponds to 8 weeks 2 days gestation. Heartbeat is identified and measures 164 beats per minute. There is a 1.5 cm right ovarian cyst. There is a 1.7 cm left ovarian cyst. IMPRESSION: Single, living, intrauterine gestation with 8 weeks 2 days ultrasound age. Reviewed, Interpreted and Dictated by Blaine Reyes III, MD Transcribed by Osiris Miller Authenticated and . [facility]
== END ==
PROVIDERS: PCP Family Medicine; Visit Provider Nurse Practitioner Obstetrics & Gynecology
DX: Z34.90 Encounter for supervision of normal pregnancy, unspecified, unspecified trimester (principal)
CPT/HCPCS: 76801

== ENCOUNTER → 2022-04-06 09:39 | Outpatient (CLI) | payer BC, SELFPAY | PROVIDERS: PCP Family Medicine; Visit Provider Nurse Practitioner Obstetrics & Gynecology | DX: Z31.430 Encounter of female for testing for genetic disease carrier status for procreative management (principal); Z36.0 Encounter for antenatal screening for chromosomal anomalies; O28.3 Abnormal ultrasonic finding on antenatal screening of mother | CPT/HCPCS: 36415 ==

== ENCOUNTER → 2022-06-01 13:34 | Outpatient (CLI) | payer BC, SELFPAY ==
--- NOTE | 2022-06-01 13:34 | US_ITS ---
FINAL REPORT CLINICAL HISTORY: 20 week anatomy scan FINDINGS: There is a single live intrauterine gestation. Presentation is cephalic. The cervix is closed and measures 4.7 cm. Placenta is anterior grade 1. movement is noted. Heart rate is 144 beats per minute. Three-vessel cord with satisfactory umbilical cord insertion. Four-chamber heart is noted. Diaphragm is unremarkable. ABDOMEN: Both kidneys are unremarkable. SPINE: No anomalies identified. AMNIOTIC FLUID: Appropriate amount. MEASUREMENTS: ULTRASOUND AGE: 19 weeks 5 days. GESTATION AGE: 20 weeks 2 days. ESTIMATED WEIGHT: 308 g GROWTH PERCENTILE: 17 % BPD: 4.58 cm corresponding to 19 weeks 6 days. OFD: 5.78 cm corresponding to 20 weeks 0 days. HC: 16.38 cm corresponding to 19 weeks 1 day. AC: 14.29 cm corresponding to 19 weeks 5 days. FL: 3.18 cm corresponding to 20 weeks 0 days. CEREBELLUM: 1.99 cm corresponding to 20 weeks 2 days. HUMERUS: 3.03 cm corresponding to 20 weeks 0 days. HC/AC: 1.15 CI: 79% FL/BPD: 69% FL/AC: 22% IMPRESSION: Single living IUP with an ultrasound age of 19 weeks 5 days. Reviewed, Interpreted and Dictated by Blaine Reyes III, MD Transcribed by Sheryl Talamantes Authenticated and [facility]
== END ==
PROVIDERS: PCP Family Medicine; Visit Provider Nurse Practitioner Obstetrics & Gynecology
DX: Z34.90 Encounter for supervision of normal pregnancy, unspecified, unspecified trimester (principal); Z3A.20 20 weeks gestation of pregnancy
CPT/HCPCS: 76811

== ENCOUNTER → 2022-07-29 08:24 | Outpatient (CLI) | payer BC, SELFPAY ==
[2022-07-29 08:44] LABS: Basophils # 0.1 K/mm3 (0-0.2); Basophils % 1.5 % (0.1-2.0); Eosinophils # 0.1 K/mm3 (0.0-0.4); Hematocrit 38.8 % (37.0-47.0); Hemoglobin 12.5 g/dL (12.2-16.2); Lymphocytes # 1.8 K/mm3 (0.7-4.5); Lymphocytes % 19.9 % (10-50); Mean Corpuscular HGB Conc 32.1 g/dL (31.8-35.4); Mean Corpuscular Hemoglobin 30.3 pg (27.0-31.2); Mean Corpuscular Volume 94.6 fl (81-99); Mean Platelet Volume 7.4 fl (7.4-10.4); Monocytes # 0.5 K/mm3 (0.1-1.0); Monocytes % 5.1 % (1.7-9.3); Neutrophils # 6.4 K/mm3 (1.8-7.8); Neutrophils % 72.5 % (37.0-80.0); Platelet Count 255 K/mm3 (142-424); Red Blood Count 4.11 M/mm3 (4.20-5.40); Red Cell Distribution Width 13.2 % (11.5-17.5); White Blood Count 8.9 K/mm3 (4.8-10.8)
[2022-07-29 09:21] LABS: Glucose,Fasting 81 mg/dl (74-100)
[2022-07-29 10:26] LABS: Glucose 1 Hour 89 mg/dL (74-100)
== END ==
PROVIDERS: PCP Family Medicine; Visit Provider Nurse Practitioner Obstetrics & Gynecology
DX: Z34.90 Encounter for supervision of normal pregnancy, unspecified, unspecified trimester (principal); Z3A.25 25 weeks gestation of pregnancy
CPT/HCPCS: 36415; 82951; 85025

== ENCOUNTER → 2022-08-29 07:59 | Outpatient (CLI) | payer BC, SELFPAY ==
--- NOTE | 2022-08-29 07:59 | US_ITS ---
FINAL REPORT CLINICAL HISTORY: sga FINDINGS: There is a single live intrauterine gestation. Presentation is cephalic. The cervix is closed and measures 3.6 cm. Placenta is anterior, grade 2. Cardiac activity is confirmed at 150 bpm. Fetus is active and breathing is noted. PANCHO: 9.34 cm MEASUREMENTS: ULTRASOUND AGE: 31 weeks 6 days. GESTATION AGE: 33 weeks 0 days. ESTIMATED WEIGHT: 1717 g GROWTH PERCENTILE: 5% LMP percentile BPD: 8 cm corresponding with 32 weeks 0 days. OFD: 10.9 cm corresponding with 34 weeks 6 days. HC: 29.9 cm corresponding with 33 weeks 1 days. AC: 26.6 cm corresponding with 30 weeks 6 days. FL: 6 cm corresponding with 31 weeks 1 days. HC/AC: 1.12 CI: 73% FL/BPD: 75% FL/AC: 22% BREATHIN/2 MOVEMENT: 2/2 TONE: 2/2 FLUID VOLUME: 2/2 BPP SCORE: 8/8 IMPRESSION: Single living IUP with an ultrasound age of 31 weeks 6 days. BPP SCORE: 8/8 PANCHO: 9.34 cm Reviewed, Interpreted and Dictated by Edmund Golden MD Transcribed by Osiris Miller Authenticated and [facility]
== END ==
PROVIDERS: PCP Family Medicine; Visit Provider Nurse Practitioner Obstetrics & Gynecology
DX: O36.5990 Maternal care for other known or suspected poor fetal growth, unspecified trimester, not applicable or unspecified (principal)
CPT/HCPCS: 76816; 76819

== ENCOUNTER 2022-09-15 11:28 | Outpatient (CLI) | payer BC, SELFPAY ==
[2022-09-15 11:48] VITALS: BP 115/77; PULSE 86; RESP 18; TEMP 36.6; O2SAT 98; BMI 21.5
== END 2022-09-15 12:06 | disposition home or self-care (01) ==
LOC: OBOUT 11:29 → OB 11:30
PROVIDERS: PCP Family Medicine; Visit Provider Obstetrics & Gynecology
DX: O36.8130 Decreased fetal movements, third trimester, not applicable or unspecified (principal); Z3A.35 35 weeks gestation of pregnancy
CPT/HCPCS: 59025; G0463

== ENCOUNTER → 2022-09-20 09:25 | Outpatient (CLI) | payer BC, SELFPAY ==
--- NOTE | 2022-09-20 09:36 | US_ITS ---
FINAL REPORT CLINICAL HISTORY: sga FINDINGS: There is a single live intrauterine gestation. Presentation is cephalic. Placenta is anterior, grade 2. Heart rate is 125 beats per minute. AMNIOTIC FLUID: Appropriate amount. PANCHO: 9.99, borderline MEASUREMENTS: ULTRASOUND AGE: 34 weeks 2 days. GESTATION AGE: 36 weeks 1 days. ESTIMATED WEIGHT: 2411 g GROWTH PERCENTILE: 12% LMP percentile BPD: 8.5 cm corresponding with 34 weeks 3 days. OFD: 10.5 cm corresponding with 33 weeks 2 days. HC: 30.1 cm corresponding with 33 weeks 3 days. AC: 30.6 cm corresponding with 34 weeks 4 days. FL: 6.7 cm corresponding with 34 weeks 3 days. HC/AC: 0.98 CI: 81% FL/BPD: 78% FL/AC: 22% IMPRESSION: Single living IUP with an ultrasound age of 34 weeks 2 days. PANCHO of 9.99 cm, borderline. Reviewed, Interpreted and Dictated by Blaine Reyes III, MD Transcribed by Osiris Miller Authenticated and [facility]
== END ==
PROVIDERS: PCP Family Medicine; Visit Provider Obstetrics & Gynecology
DX: O36.5990 Maternal care for other known or suspected poor fetal growth, unspecified trimester, not applicable or unspecified (principal)
CPT/HCPCS: 76816; 86403

== ENCOUNTER 2022-10-03 04:51 | Inpatient (IN) | payer BC, SELFPAY ==
[2022-10-03 05:03] VITALS: BMI 21.5
[2022-10-03 06:16] LABS: Microscopic, Urine URINE MICROSCOPIC (MICROSCOPIC)
[2022-10-03 06:16] LABS: Coronavirus 19, PCR Not Detected (NotDetected); Influenza A, PCR Not Detected (NotDetected); Influenza B, PCR Not Detected (NotDetected)
[2022-10-03 06:19] LABS: Basophils # 0.1 K/mm3 (0-0.2); Basophils % 1.1 % (0.1-2.0); Eosinophils # 0.2 K/mm3 (0.0-0.4); Eosinophils % 1.6 % (0.1-12.0); Hematocrit 38.3 % (37.0-47.0); Hemoglobin 13.1 g/dL (12.2-16.2); Lymphocytes # 2.1 K/mm3 (0.7-4.5); Lymphocytes % 21.7 % (10-50); Mean Corpuscular HGB Conc 34.3 g/dL (31.8-35.4); Mean Corpuscular Hemoglobin 30.6 pg (27.0-31.2); Mean Corpuscular Volume 89.2 fl (81-99); Mean Platelet Volume 7.7 fl (7.4-10.4); Monocytes # 0.6 K/mm3 (0.1-1.0); Monocytes % 6.3 % (1.7-9.3); Neutrophils # 6.8 K/mm3 (1.8-7.8); Neutrophils % 69.3 % (37.0-80.0); Platelet Count 216 K/mm3 (142-424); Red Blood Count 4.29 M/mm3 (4.20-5.40); Red Cell Distribution Width 13.4 % (11.5-17.5); White Blood Count 9.8 K/mm3 (4.8-10.8)
[2022-10-03 06:30] LABS: Appearance,Urine SL CLOUDY (Clear); Bilirubin,Urine Negative (Negative); Blood, Urine Negative (Negative); Color,Urine YELLOW (Yellow); Glucose,Urine (UA) Negative (Negative); Ketones,Urine Negative (Negative); Leukocyte Esterase,Urine Negative (Negative); Nitrate,Urine Negative (Negative); PH,Urine 6.5 (5.0-8.5); Protein,Urine Negative (Negative); Specific Gravity, Urine 1.015 (1.005-1.030); Urobilinogen,Urine 0.2 EU/dl (0.2)
[2022-10-03 06:40] VITALS: BP 129/75; PULSE 95; RESP 18; TEMP 36.7; BMI 21.6
[2022-10-03 06:54] LABS: Bacteria,Urine Trace /lpf; Squamous Epithelial Cell,Urine Occasional #/hpf (0-5); WBC,Urine Occasional #/hpf (0-3)
[2022-10-03 07:09] LABS: Benzodiazepines Screen,Urine Negative ng/ml (<200)
[2022-10-03 07:10] LABS: Amphetamine/Metha Screen,Urine Negative ng/ml (<1000)
[2022-10-03 07:11] LABS: Barbiturates Screen,Urine Negative ng/ml (<200)
[2022-10-03 07:13] LABS: Cannabinoid Screen,Urine Negative ng/ml (<50); Methadone Screen,Urine Negative ng/ml (<300)
[2022-10-03 07:14] LABS: Cocaine Screen,Urine Negative ng/ml (<300)
[2022-10-03 07:15] LABS: Opiate Screen,Urine Negative ng/ml (<300)
[2022-10-03 07:16] LABS: Phencyclidine Screen,Urine Negative ng/ml (<25)
[2022-10-03 07:51] VITALS: BP 124/75; PULSE 86; RESP 18; TEMP 36.8; O2SAT 100
--- NOTE | 2022-10-03 08:42 | EXP.LABOR.NO ---
Labor Note Subjective: Date: 10/03/22 Time: 08:42 regular contraction Objective: NST:: Reactive Contractions:: every 2-3 minutes Cervical Dilation:: 2-3 Effacement:: 50% Station: -2 Membranes: artificially ruptured Comment:: I ruptured her membranes and there was clear fluid Fetus: Monitoring?: Yes monitoring type:: External Assessment: Labor progressing?: Yes Cephalopelvic disproportion?: No All Active Problems (Updated 09/29/22 @ 14:44 by Gal Martino MD) Small for gestational age fetus affecting management of mother in damian in third trimester (Acute) PCR DNA positive for HSV1 (Acute) (Acute) Plan: Anesthesia for epidural?: No Continue to labor down?: Yes Plan for ?: No Continue to monitor?: Yes Start pushing?: No
--- NOTE | 2022-10-03 08:43 | EXP.HP ---
History of Present Illness *Admission Date: 10/03/22 *Reason for visit:: Term , IUGR *History of present illness: She is a 26-year-old 3 para 1 aborta 1 at 38+ weeks gestational age. She has a small for gestational age and as result of that we have elected to induce her labor at term. [facility] Disclaimer: The information contained in this section may have been updated after the patient was seen, as this information can be updated by other users. Social History Smoking Status: Never smoker alcohol intake: never substance use type: denies use current occupational status: employed Travel in the last 8 weeks: None Review of Systems Review of Systems Review of systems:: pertinent systems reviewed and negative unless documented below Meds Home Medications and Allergies Home Medications Medication Instructions Recorded Confirmed Type prenat.vits,tati,olc-knoe-btofd 1 tab PO DAILY Supplement 06/15/20 10/03/22 History ferrous sulfate 325 mg (65 mg 325 mg PO DAILY Supplement 09/13/22 10/03/22 History iron) tablet New Prescriptions to Start Prescriptions: Allergies Allergy/AdvReac Type Severity Reaction Status Date / Time No Known Allergies Allergy Verified 09/29/22 10:56 Exam Data for Last 24 hours Vital signs and Labs for Last 24 Hours: Temp Pulse Resp BP Pulse Ox 98.2 F 86 18 124/75 100 10/03/22 07:51 10/03/22 07:51 10/03/22 07:51 10/03/22 07:51 10/03/22 07:51 Laboratory Results - last 24 hr 10/03/22 05:15: Urine Color Yellow, Urine Appearance Sl cloudy, Urine pH 6.5, Ur Specific [place] 1.015, Urine Protein Negative, Urine Glucose (UA) Negative, Urine Ketones Negative, Urine Blood Negative, Urine Nitrate Negative, Urine Bilirubin Negative, Urine Urobilinogen 0.2, Ur Leukocyte Esterase Negative, Urine RBC None, Urine WBC Occasional, Ur Squamous Epith Cells Occasional, Urine Bacteria Trace 10/03/22 05:15: Urine Opiates Screen Negative, Urine Methadone Screen Negative, Ur Barbituates Screen Negative, Ur Phencyclidine Scrn Negative, Ur Amphetamines Screen Negative, U Benzodiazepines Scrn Negative, Urine Cocaine Screen Negative, U Marijuana (THC) Screen Negative 10/03/22 05:55: WBC 9.8, RBC 4.29, Hgb 13.1, Hct 38.3, MCV 89.2, MCH 30.6, MCHC 34.3, RDW 13.4, Plt Count 216, MPV 7.7, Neut % (Auto) 69.3, Lymph % (Auto) 21.7, [place] % (Auto) 6.3, Eos % (Auto) 1.6, Baso % (Auto) 1.1, Neut # (Auto) 6.8, Lymph # (Auto) 2.1, [place] # (Auto) 0.6, Eos # (Auto) 0.2, Baso # (Auto) 0.1 10/03/22 05:55: SARS-CoV-2 (PCR) Not detected, Influenza A Untype (PCR) Not detected, Influenza Type B (PCR) Not detected 10/03/22 05:55: Blood Type A Positive, Antibody Screen Negative I & O for Last 24 hours: Intake & Output 09/30/22 10/01/22 10/02/22 10/03/22 11:59 11:59 11:59 11:59 Weight 145 lb 15.983 oz Constitutional Constitutional: no acute distress *Routine HEENT Exam Head: Present normocephalic Eye: Present EOMI and PERRL ENT: Present mucous membranes moist *Routine Neck Exam Neck: Present supple; Absent lymphadenopathy *Routine Respiratory Exam Respiratory: Present CTA bilaterally *Routine Cardiovascular Exam Cardiovascular: Present RRR *Routine Abdominal Exam Abdominal: Present soft and normoactive bowel sounds; Absent tenderness *Routine Rectal Exam Rectal:: deferred *Routine Genitalia Exam Genitalia:: deferred *Routine Extremities Exam Extremities: Absent cyanosis, clubbing or edema *Routine Skin Exam Skin: Present warm; Absent rash *Routine Neurological Exam Neurological: Present alert and oriented X3 Assessment and Plan *Assessment and plan (1) Small for gestational age fetus affecting management of mother in damian in third trimester: Status: Acute Category: Medical Code(s): O36.5930 - Maternal care for other known or suspected poor growth, third trimester, not applicable
--- NOTE | 2022-10-03 11:14 | EXP.LABOR.NO ---
Labor Note Subjective: Date: 10/03/22 Time: 11:14 regular contraction Objective: NST:: Reactive Contractions:: every 2-3 minutes Cervical Dilation:: 4 Effacement:: 75% Station: -2 Membranes: artificially ruptured Fetus: Monitoring?: Yes monitoring type:: External Assessment: Labor progressing?: Yes Cephalopelvic disproportion?: No All Active Problems (Updated 10/03/22 @ 08:45 by Gal Martino MD) Normal delivery (Acute) Small for gestational age fetus affecting management of mother in damian in third trimester (Acute) PCR DNA positive for HSV1 (Acute) (Acute) Plan: Anesthesia for epidural?: Yes Continue to labor down?: Yes Plan for ?: No Continue to monitor?: Yes Start pushing?: No Comment:: She continues to do well. We will continue to monitor. She is progressing.
--- NOTE | 2022-10-03 13:44 | EXP.LABOR.NO ---
Labor Note Subjective: Date: 10/03/22 Time: 13:44 regular contraction Objective: NST:: Reactive Contractions:: every 2-3 minutes Cervical Dilation:: 5-6 Effacement:: 90% Station: -1 Membranes: artificially ruptured Fetus: Monitoring?: Yes monitoring type:: External Assessment: Labor progressing?: Yes Cephalopelvic disproportion?: No All Active Problems (Updated 10/03/22 @ 08:45 by Gal Martino MD) Normal delivery (Acute) Small for gestational age fetus affecting management of mother in damian in third trimester (Acute) PCR DNA positive for HSV1 (Acute) (Acute) Plan: Anesthesia for epidural?: Yes Continue to labor down?: Yes Plan for ?: No Continue to monitor?: Yes Start pushing?: No Comment:: She continues to do very well. The nonstress test is reactive. She is having regular strong contractions. She is awaiting an epidural.
--- NOTE | 2022-10-03 15:09 | P.PCN_ITS ---
Delivery Note Delivery Date:: 10/03/22 Delivery Time:: 14:26 Anesthesia Type: None Was labor medically induced?: Yes Induction method: per misoprostol protocol Gestational age (weeks): 38 delivered prior to 39 weeks?: Yes Justification for early elective delivery:: IUGR Gender: Female at 1 minute: 8 at 5 minutes: 9 LAC or MLE?: MLE Delivery Procedure:: She is a 26-year-old 3 para 1 aborta 1 who was 38 weeks gestational age. She had a growth restricted baby and as result of that we elected to induce her labor at term. She was started on IV oxytocin had her membranes ruptured. She progressed to full dilation and delivered spontaneously a liveborn female child at 2:26 PM in the afternoon of October 03, 2022. The perineum was quite tight and there were heart tones in the 50s and 60s so I did a small midline episiotomy under local anesthetic after injecting 10 cc of 1% Xylocaine. The infant's head then delivered atraumatically there was a tight nuchal cord x2 and I deliver the rest the infant's body atraumatically followed by reduction of cord x2. The baby was vigorous and cried spontaneously. The oropharynx and nasopharynx were bulb suctioned.. We allowed the cord to continue to pulsate for approximately 1 minute. The cord was then doubly clamped and cut and the was placed on the mother's abdomen for further care. The nurses assigned Apgars of 8 at 1 minute and 9 at 5 minutes. We then obtained cord blood. She received IV oxytocin and using gentle traction on the cord and countertraction on the fundus I was able to easily deliver the placenta intact at 2:31 PM, 5 minutes after delivery. It had a normal three- vessel cord. I then turned my attention to her midline episiotomy 3-0 Vicryl Rapide suture was used for the superficial tissues of the vaginal mucosa and 2-0 Vicryl suture was used to the deep tissues of the perineum. I used interrupted subcuticular 2-0 Vicryl suture for the skin of the perineum. She tolerated the procedure well. Her estimated blood loss was approximately 250 cc. Placental Delivery Description: Spontaneous
[2022-10-03 19:21] VITALS: BP 109/71; PULSE 78; RESP 17; TEMP 36.3; O2SAT 100
[2022-10-04 05:32] VITALS: BP 107/55; PULSE 75; RESP 17; TEMP 36.6; O2SAT 100
[2022-10-04 07:24] LABS: Hematocrit 33.4 % (37.0-47.0); Hemoglobin 11.4 g/dL (12.2-16.2)
[2022-10-04 08:07] VITALS: BP 112/58; PULSE 105; RESP 18; TEMP 36.4; O2SAT 99
--- NOTE | 2022-10-04 08:39 | EXP.ACUTE.PN ---
Subjective *Date: 10/04/22 *Time: 08:39 Interval history: She is doing very well this morning. She is eating and drinking and ambulating. She is bottlefeeding. Her lochia is normal. Her hemoglobin is 11.8. Medical Exam Vital signs and Labs for Last 24 Hours: Vital Signs Temp Pulse Resp BP Pulse Ox 10/04/22 05:32 97.8 F 75 17 107/55 L 100 10/03/22 19:21 97.4 F L 78 17 109/71 L 100 Laboratory Results - last 24 hr 10/04/22 07:00: Hgb 11.4 L, Hct 33.4 L I & O for Labs for Last 24 Hours: Intake & Output 10/01/22 10/02/22 10/03/22 10/04/22 11:59 11:59 11:59 11:59 Weight 145 lb 15.983 oz Head: Present atraumatic Neck: Present normal inspection Respiratory: Present normal respiratory effort; Absent accessory muscle use Assessment and Plan *Assessment and plan (1) Normal delivery: Status: Acute Category: Medical Code(s): O80 - Encounter for full-term uncomplicated delivery (2) Small for gestational age fetus affecting management of mother in damian in third trimester: Status: Acute Category: Medical Code(s): O36.5930 - Maternal care for other known or suspected poor growth, third trimester, not applicable or unspecified Plan She continues to do well. She is bottlefeeding. Her lochia is normal. She denies any pain. We will plan to send her home tomorrow.
[2022-10-04 15:30] VITALS: BP 113/63; PULSE 79; RESP 17; TEMP 36.5; O2SAT 99
[2022-10-05 08:13] VITALS: BP 123/62; PULSE 91; RESP 18; TEMP 36.7; O2SAT 100
--- NOTE | 2022-10-05 08:23 | EXP.DC.SUM ---
General Admission date:: 10/03/22 Discharge date: 10/05/22 HPI HPI HPI: She is a 26-year-old 3 para 1 aborta 1 at 38+ weeks gestational age. She has a small for gestational age infant and as result of that we have elected to induce her labor at term. Hospital Course Hospital Course Hospital Course: She was started on IV oxytocin had her membranes ruptured. She delivered spontaneously a liveborn female child at 2:26 PM in the afternoon of October 03, 2022. The baby weighed 6 pounds 10 ounces and was 19 and quarter inches long. She had Apgars of 8 at 1 minute and 9 at 5 minutes. She required a small midline episiotomy and it was repaired in the usual fashion. She is doing well. She has a positive blood, she is rubella immune and was group B streptococcus negative. 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 She will follow-up with me in approximately 2 weeks time. She will continue with her vitamins and iron. She is just taking [id number] analgesics. Her condition on discharge is stable and improved. Exam Data for Last 24 hours Vital signs and Labs for Last 24 Hours: Temp Pulse Resp BP Pulse Ox 98.1 F 91 H 18 123/62 100 10/05/22 08:13 10/05/22 08:13 10/05/22 08:13 10/05/22 08:13 10/05/22 08:13 I & O for Last 24 hours: Intake & Output 10/02/22 10/03/22 10/04/22 10/05/22 11:59 11:59 11:59 11:59 Weight 145 lb 15.983 oz Constitutional Constitutional: no acute distress *Routine HEENT Exam Head: Present normocephalic *Routine Respiratory Exam Respiratory: Present normal respiratory effort; Absent accessory muscle use DS: Diagnosis Discharge Diagnosis (1) Normal delivery: Status: Acute (2) Small for gestational age fetus affecting management of mother in damian in third trimester: Status: Acute Meds Home Medications and Allergies Home Medications Medication Instructions Recorded Confirmed Type prenat.vits,tati,gnf-nogi-edxpm 1 tab PO DAILY Supplement 06/15/20 10/03/22 History ferrous sulfate 325 mg (65 mg 325 mg PO DAILY Supplement 09/13/22 10/03/22 History iron) tablet New Prescriptions to Start Prescriptions: Allergies Allergy/AdvReac Type Severity Reaction Status Date / Time No Known Allergies Allergy Verified 09/29/22 10:56 Discharge Plan Disposition Patient Disposition: Home, Self-Care Discharge Order Discharge Orders: Discharge Order (Routine); Ordered 10/05/22 Ordered By: Gal Martino Follow up Plan Prescriptions/Medication Reconciliation: Continued prenat.vits,tati,mwj-mcsn-ictxn Tablet 1 tab PO DAILY ferrous sulfate 325 mg (65 mg iron) tablet 325 mg PO DAILY Problem Reconciliation Problems Reviewed?: Yes Patient Discharge Instructions ACTIVITY: No heavy lifting Additional Instructions: Drink plenty of water. No strenuous activity or heavy lifting for 6 weeks. No tub baths for 6 weeks. Nothing in the vagina for 6 weeks. Patient Instructions: Depression, Hemorrhage, DI for Labor and Delivery, Vaginal , DI for Episiotomy, DI for Pre-eclampsia, [facility] Post Discharge Instructions Providers Primary Care Provider: Juan Pablo Barrios Admit Provider: Karlee Man Attending Provider: Gal Martino
== END 2022-10-05 11:00 | disposition home or self-care (01) | DRG 807 ==
PROVIDERS: Admitting Provider Obstetrics & Gynecology; PCP Family Medicine; Visit Provider Nurse Practitioner Obstetrics & Gynecology
DX: O36.5930 Maternal care for other known or suspected poor fetal growth, third trimester, not applicable or unspecified (principal); Z37.0 Single live birth; Z3A.38 38 weeks gestation of pregnancy; O69.81X0 Labor and delivery complicated by cord around neck, without compression, not applicable or unspecified
CPT/HCPCS: 59409; 36415; 59025; 80305; 81001; 85014; 85018; 85025; 86850; C9803; J0595; U0003; U0005

== ENCOUNTER → 2023-01-11 11:48 | Outpatient (CLI) | payer BC, SELFPAY ==
--- NOTE | 2023-01-11 11:51 | XR_ITS ---
FINAL REPORT CLINICAL HISTORY: LEFT FOOT PAIN, MULTIPLE PRIOR FX'S IN LEFT FOOT COMPARISON: None FINDINGS: LEFT FOOT: Three views of the left foot were obtained. There is no acute fracture or dislocation. The joint spaces are intact. There is no soft tissue abnormality. IMPRESSION: No acute bony abnormality. Reviewed, Interpreted and Dictated by Blaine Reyes III, MD Transcribed by Amy Galloway Authenticated and [facility]
== END ==
PROVIDERS: PCP Physician Assistant; Visit Provider Physician Assistant
DX: M79.672 Pain in left foot (principal)
CPT/HCPCS: 73630

== ENCOUNTER 2024-08-30 10:32 | Outpatient (CLI) | payer BC, SELFPAY ==
[2024-08-30 11:23] LABS: HCG,Quantitative 642 mIU/ml (0-5.42)
== END 2024-08-30 23:59 | disposition home or self-care (01) ==
LOC: LAB 10:33
PROVIDERS: PCP Family Medicine; Visit Provider Obstetrics & Gynecology
DX: Z32.01 Encounter for pregnancy test, result positive (principal)
CPT/HCPCS: 36415; 84144; 84702

== ENCOUNTER 2024-09-16 09:00 | Outpatient (CLI) | payer BC, SELFPAY | END 2024-09-16 23:59 | disposition home or self-care (01) | LOC: LAB.DROPOF 09-17 10:18 | PROVIDERS: PCP Obstetrics & Gynecology; Visit Provider Obstetrics & Gynecology | DX: Z34.90 Encounter for supervision of normal pregnancy, unspecified, unspecified trimester (principal) | CPT/HCPCS: 87086 ==

== ENCOUNTER 2024-09-17 08:05 | Outpatient (CLI) | payer BC, SELFPAY ==
[2024-09-17 10:24] LABS: HCG,Quantitative 2136 mIU/ml (0-5.42)
== END 2024-09-17 23:59 | disposition home or self-care (01) ==
PROVIDERS: PCP Physician Assistant; Visit Provider Obstetrics & Gynecology
DX: O03.9 Complete or unspecified spontaneous abortion without complication (principal)
CPT/HCPCS: 36415; 84702; 87086

== ENCOUNTER 2024-09-19 10:21 | Outpatient (CLI) | payer BC, SELFPAY ==
[2024-09-19 11:46] LABS: HCG,Quantitative 532 mIU/ml (0-5.42)
== END 2024-09-19 23:59 | disposition home or self-care (01) ==
PROVIDERS: PCP Physician Assistant; Visit Provider Obstetrics & Gynecology
DX: O20.9 Hemorrhage in early pregnancy, unspecified (principal)
CPT/HCPCS: 36415; 84702

== ENCOUNTER 2024-09-30 10:05 | Outpatient (CLI) | payer BC, SELFPAY ==
[2024-09-30 11:30] LABS: HCG,Quantitative 7 mIU/ml (0-5.42)
== END 2024-09-30 23:59 | disposition home or self-care (01) ==
LOC: LAB 10:05
PROVIDERS: PCP Family Medicine; Visit Provider Obstetrics & Gynecology
DX: O20.9 Hemorrhage in early pregnancy, unspecified (principal); Z3A.09 9 weeks gestation of pregnancy
CPT/HCPCS: 36415; 84702

== ENCOUNTER 2024-10-08 10:50 | Outpatient (CLI) | payer BC, SELFPAY ==
[2024-10-08 12:17] LABS: HCG,Quantitative < 2 mIU/ml (0-5.42)
== END 2024-10-08 23:59 | disposition home or self-care (01) ==
LOC: LAB 10:51
PROVIDERS: PCP Family Medicine; Visit Provider Obstetrics & Gynecology
DX: O03.9 Complete or unspecified spontaneous abortion without complication (principal)
CPT/HCPCS: 36415; 84702

== ENCOUNTER 2025-04-26 09:22 | Outpatient (CLI) | payer BC, SELFPAY | END 2025-04-26 23:59 | disposition home or self-care (01) | LOC: LAB 09:23 | PROVIDERS: PCP Family Medicine; Visit Provider Obstetrics & Gynecology | DX: Z34.90 Encounter for supervision of normal pregnancy, unspecified, unspecified trimester (principal) | CPT/HCPCS: 36415; 84144; 84702 ==

== ENCOUNTER 2025-05-12 13:43 | Outpatient (CLI) | payer BC, SELFPAY ==
[2025-05-12 14:59] LABS: Hematocrit 39.0 % (37.0-47.0); Hemoglobin 12.4 g/dL (12.2-16.2); Immature Granulocytes % 0.2 %; Mean Corpuscular HGB Conc 31.8 g/dL (31.8-35.4); Mean Corpuscular Hemoglobin 27.1 pg (27.0-31.2); Mean Corpuscular Volume 85.2 fl (81-99); Nucleated Red Blood Cells % 0 %; Platelet Count 226 K/mm3 (142-424); Red Blood Count 4.58 M/mm3 (4.20-5.40); Red Cell Distribution Width-SD 42.6 fL; White Blood Count 5.9 K/mm3 (4.8-10.8)
[2025-05-12 15:26] LABS: Hepatitis C Ab Qual. W/ RFX NEGATIVE (Negative)
[2025-05-12 17:06] LABS: RPR W/RFX Titers Nonreactive (Nonreactive)
[2025-05-13 05:12] LABS: Hepatitis B Surface Antigen Negative (Negative)
[2025-05-13 08:17] LABS: Rubella Antibodies, IgG 2.16 index (Immune >0.99)
== END 2025-05-12 23:59 | disposition home or self-care (01) ==
PROVIDERS: PCP Family Medicine; Visit Provider Obstetrics & Gynecology
DX: O20.9 Hemorrhage in early pregnancy, unspecified (principal)
CPT/HCPCS: 36415; 84144; 85025; 86592; 86762; 86803; 86850; 87086; 87340; 87389

== ENCOUNTER 2025-08-12 12:47 | Outpatient (CLI) | payer BC, SELFPAY ==
--- OUTSIDE RECORDS SUMMARY | 2025-08-12 12:51 | XMS_ITS | Patient Health Record ---
Author Organization [facility] Address [address] [place] [id number] Care Team Providers Care Needle Straightener Name Role Phone Mauro Cui Primary Care Provider Casandra Ramirez Unavailable [phone] Allergies No Known Allergies Medications Medication SIG (Take, Route, Frequency, Duration) Notes Start Date End Date Status ORTHO-NOVUM TRIPHASIC 0.5 MG-0.75 MG-1 MG 1 TAB(S) ORALLY ONCE A DAY *Please review for potential replacement for e-prescription and drug interaction check* 04/12/2014 Active Immunizations Vaccine Route Administration Date Status Comme nts Tetanus Tdap-Adacel (over 7yrs) IM Intramuscular 04/22/2006 Administered Tetanus Tdap-Adacel (over 7yrs) IM Intramuscular 04/28/2015 Administered ppd ID Intradermal 04/28/2015 Administered ppd SC Subcutaneous 05/16/2016 Administered COVID 19 Moderna Unknown 09/06/2021 Administered COVID 19 Moderna Unknown 10/04/2021 Administered Problems No Known Problems Plan Of Treatment No Information Insurance Providers Payer Name Payer Address Payer Phone Subscriber Number Group Number Insured Name Patient Relationship to Insured Coverage Start Date Coverage End Date [employer] [address] [place] [address] [phone] [id number] ISABELA SOLO Self - patient is the insured Medical (General) History Surgical History Surgery Date(Month/Year) Appendectomy Hospitalization History Reason Date(Month/Year)
--- NOTE | 2025-08-12 13:00 | US_ITS ---
PROCEDURE: US OB /MATERNAL DETAIL CLINICAL INDICATION: schedule 20 wk anatomy scan in 2wks COMPARISON: No exams were available for comparison FINDINGS: Transabdominal sonographic images of the pelvis were obtained. From her established due date she is 19 weeks 6 days. Single viable intrauterine gestation. Cephalic position. Placenta: Posteriorplacenta grade 1. There is a small placental Gore. There is an average amount of fluid. The cervix appears satisfactory. Closed and measuring 3.34 cm in length. Complete survey performed and was unremarkable on the submitted images as in PACS. No discrete anomalies identified on survey imaging by technologist. Active fetus. Three-vessel cord with satisfactory umbilical cord insertion. 4- chamber heart noted. Situs, aortic arch, LVOT, RVOT, three-vessel view appear normal. Survey of brain & ventricles Unremarkable. Cerebellum, thalamus, choroid plexus, cisterna magna appear normal. Face and neck survey unremarkable. Profile, nasion, lips and nose appeared normal. Diaphragm and chest views unremarkable. Abdomen: Both kidneys noted and unremarkable. Stomach and bladder noted and satisfactory. Spine: Survey of the spine satisfactory with no anomalies identified nor imaged. Cervical, thoracic, lower spine appear normal. Both arms and legs noted. Amniotic Fluid: Adequate. MVP 3.52 cm Measurements: Average ultrasound age 19weeks 5days. Estimated due date by ultrasound age 0401/01/2026. Estimated weight 296g BPD = 20weeks 1day HC = 19weeks 3days AC = 19weeks 5days FL = 19weeks 2days Growth Percentile= 26 Heart Rate = 150bpm Cerebellum = 19weeks 5days Humerus = 19weeks 3days HC/AC is 1.16 FL/BPD is 0.65 FL/AC is 0.21 IMPRESSION: 1. Viable fetus in the cephalic presentation with a posterior placenta grade 1. There is a placental Gore. 2. The fluid is within normal limits with an MVP 3.52 cm. 3. Anatomical scan appears normal. 4. biometry is consistent with the dates. Dictated by: Gal Martino MD 08/12/2025 15:01 Gal Martino MD in [facility] 08/12/2025 15:01
== END 2025-08-12 23:59 | disposition home or self-care (01) ==
LOC: RAD 12:47
PROVIDERS: PCP Family Medicine; Visit Provider Obstetrics & Gynecology
DX: O28.3 Abnormal ultrasonic finding on antenatal screening of mother (principal); O20.9 Hemorrhage in early pregnancy, unspecified; Z3A.19 19 weeks gestation of pregnancy
CPT/HCPCS: 76811